=== PATIENT | female | born 1990 | race Caucasian/White ===

== ENCOUNTER 2024-06-10 08:52 | Emergency (ER) | payer MEDICAID ==
[2024-06-10] MEDS ORDERED: Sodium Chloride 0.9% 10 ML Syringe FLUSH PRN (09:07)
[2024-06-10] MEDS: Sodium Chloride 0.9% 1,000 ML IV ONE (09:30)
[2024-06-10 09:33] LABS: BASOPHILS PERCENT AUTO 0.2 % (0.2-1.5); EOSINOPHILS ABSOLUTE AUTO 0.1 x10-3/uL (0.0-0.8); EOSINOPHILS PERCENT AUTO 1.8 % (0.6-8.1); HEMATOCRIT 35.5 % (34.2-48.2); HEMOGLOBIN 12.3 g/dL (11.4-15.5); LYMPHOCYTES PERCENT AUTO 11.6 % (18.4-52.1); MEAN CORPUSCULAR HEMOGLOBIN 30.6 pg (23.9-33.9); MEAN CORPUSCULAR HGB CONC 34.8 g/dL (31.9-34.8); MEAN CORPUSCULAR VOLUME 88.2 fL (76.7-100.5); MEAN PLATELET VOLUME 8.8 fL (7.1-12.4); MONOCYTES ABSOLUTE AUTO 0.4 x10-3/uL (0.3-1.0); MONOCYTES PERCENT AUTO 5.3 % (4.4-15.7); NEUTROPHILS ABSOLUTE AUTO 6.6 x10-3/uL (1.5-6.3); NEUTROPHILS PERCENT AUTO 81.1 % (30.8-76.2); PLATELET COUNT,PLT 329 x10(3)uL (151-488); RED BLOOD CELL COUNT 4.03 x10(6)uL (3.60-5.20); RED CELL DISTRIBUTION WIDTH 13.7 % (12.3-16.5); WHITE BLOOD CELL COUNT,WBC 8.2 x10-3/uL (3.0-10.3)
[2024-06-10] MEDS: Ondansetron 4 MG/2 ML SDV IVPUSH ONE (09:33)
[2024-06-10] MEDS: Ketorolac 15 MG/ML SDV IVPUSH ONE (09:33)
[2024-06-10 09:42] LABS: BLOOD UREA NITROGEN,BUN 10 mg/dL (7-18); BUN/CREATININE RATIO 14.3 (9-20); CALCIUM 8.5 mg/dL (8.6-10.2); CARBON DIOXIDE,CO2 24 mmol/L (21-32); CHLORIDE,CL 108 mmol/L (100-110); CREATININE 0.7 mg/dL (0.55-1.02); ESTIMATED GFR 119 mL/min (>60); GLUCOSE RANDOM 99 mg/dL (80-116); POTASSIUM,K 3.9 mmol/L (3.5-5.3); SODIUM,NA 143 mmol/L (135-145)
[2024-06-10 09:49] LABS: A/G RATIO 1.2; ALANINE AMINOTRANSFERASE,ALT 58 U/L (12-36); ALBUMIN 3.8 g/dL (3.5-5.2); ALKALINE PHOSPHATASE 72 IU/L (56-112); ASPARTATE AMNIOTRANSFERASE,AST 24 IU/L (5-25); BILIRUBIN TOTAL 0.3 mg/dL (0.1-1.3); PROTEIN TOTAL,TP 7.1 g/dL (6.0-8.0)
[2024-06-10 09:52] LABS: LACTIC ACID 0.8 mmol/L (0.4-2.0)
[2024-06-10] MEDS: Morphine 2 MG/ML SYRINGE IVPUSH ONE (11:33)
== END 2024-06-10 13:35 | disposition home or self-care (01) ==
LOC: FB.ED 08:52
DX: N92.1 Excessive and frequent menstruation with irregular cycle (principal); Z88.0 Allergy status to penicillin; Z91.040 Latex allergy status; Z91.048 Other nonmedicinal substance allergy status; Z87.891 Personal history of nicotine dependence
CPT/HCPCS: 36415; 74176; 80053; 83605; 85025; 86140; 96361; 96374; 96375; 99284; J1885; J2270; J2405; J7030